=== PATIENT | male | born 2000 | race Two or more races ===

== ENCOUNTER 2023-12-31 13:50 | Emergency (ER) | payer OTHER ==
[~2023-12-31] VITALS: Ht 170.2 cm; Wt 63.5 kg
[2023-12-31] MEDS ORDERED: TETANUS IMMUNE GLOBULIN IM (15:57)
[2023-12-31] MEDS ORDERED: AMOXICILLIN500 MG PO (15:59)
== END 2023-12-31 16:14 | disposition home or self-care (01) ==
LOC: ER 13:51
DX: S80.871A Other superficial bite, right lower leg, initial encounter (principal); W54.0XXA Bitten by dog, initial encounter; Y93.89 Activity, other specified; Y92.89 Other specified places as the place of occurrence of the external cause